=== PATIENT | female | born 1995 | race Caucasian/White ===

== ENCOUNTER 2018-08-06 16:26 | Emergency (ER) | payer SELFPAY ==
[2018-08-06 16:33] VITALS: BMI 22.2
[2018-08-06 16:36] VITALS: RESP 18
[2018-08-06] MEDS ORDERED: Sodium Chloride 0.9% 1,000 ML IV STA (16:54)
--- NOTE | 2018-08-06 16:54 | ED PDOC ---
Arrival/HPI - General Chief Complaint: GI Problem Historian: Patient - History of Present Illness Narrative History of Present Illness (Text): 08/06/18 16:41 22 year old female, no significant pmh, nkda, complaining of runny nose/fatigue/fever/throat pain x 1 day. Pt. stated that she has runny nose, throat pain with couple episodes of vomiting, admits fatigue and bodyache, low grade fever, no recent traveling, no abdominal or pelvic pain, no numbness or tingling, no palpitation, no other medical or psychological complaints. Past Medical History - Provider Review Nursing Documentation Reviewed: Yes - Infectious Disease Hx of Infectious Diseases: None - Reproductive Currently : No - Psychiatric Hx Substance Use: No Family/Social History - Physician Review Nursing Documentation Reviewed: Yes Family/Social History: Unknown Family HX Smoking Status: Never Smoked Hx Alcohol Use: No Hx Substance Use: No Allergies/Home Meds Allergies/Adverse Reactions: Allergies No Known Allergies Allergy (Verified 08/06/18 16:50) Review of Systems - Review of Systems Constitutional: Fatigue, Fevers Eyes: absent: Vision Changes ENT: Sore Throat, Rhinorrhea. absent: Hearing Changes Respiratory: absent: SOB, Cough, Sputum Cardiovascular: absent: Chest Pain Gastrointestinal: Nausea, Vomiting. absent: Abdominal Pain, Diarrhea Genitourinary Female: absent: Dysuria Musculoskeletal: absent: Arthralgias, Back Pain Skin: absent: Rash, Pruritis Neurological: absent: Headache Hemo/Lymphatic: absent: Adenopathy Psychiatric: absent: Anxiety, Depression, Suicidal Ideation Physical Exam Vital Signs Reviewed: Yes Vital Signs Temp Pulse Resp BP Pulse Ox 08/06/18 16:26 99.3 F 108 H 18 107/72 97 Temperature: Afebrile Blood Pressure: Normal Pulse: Tachycardic Respiratory Rate: Normal Appearance: Positive for: Well-Appearing, Non-Toxic, Comfortable Pain Distress: Mild Mental Status: Positive for: Alert and Oriented X 3 - Systems Exam Head: Present: Atraumatic, Normocephalic Pupils: Present: PERRL Extroacular Muscles: Present: EOMI Conjunctiva: Present: Normal Ears: Present: NORMAL TM, Normal Canal. No: Erythema Mouth: Present: Moist Mucous Membranes Pharnyx: No: ERYTHEMA, EXUDATE, TONSILS ENLARGED Nose (External): Present: Atraumatic. No: Abrasion, Contusion, Laceration Nose (Internal): Present: Normal Inspection, No Active Bleeding, Rhinorrhea. No: Septal Hematoma, Epistaxis Neck: Present: Normal Range of Motion, Trachea Midline. No: Meningeal Signs, MIDLINE TENDERNESS, Paraspinal Tenderness, Lymphadenopathy Respiratory/Chest: Present: Clear to Auscultation, Good Air Exchange. No: Respiratory Distress, Accessory Muscle Use, Wheezes, Decreased Breath Sounds, Rales, Retracting, Rhonchi, Tachypneic, Tender to Palpation Cardiovascular: Present: Regular Rate and Rhythm, Normal S1, S2. No: Murmurs Abdomen: No: Tenderness, Distention, Peritoneal Signs, Rebound, Guarding Back: Present: Normal Inspection. No: CVA Tenderness, Midline Tenderness, Paraspinal Tenderness, Pain with Leg Raise, Decubitus Ulcer Upper Extremity: Present: Normal Inspection. No: Cyanosis, Edema Lower Extremity: Present: Normal Inspection, NORMAL PULSES, Normal ROM, Neurovascularly Intact, Capillary Refill < 2 s. No: Edema, Tenderness, Swelling, Deformity Neurological: Present: GCS=15, CN II-XII Intact, Speech Normal, Motor Func Grossly Intact, Gait Normal, Memory Normal Skin: Present: Warm, Dry, Normal Color. No: Rashes Psychiatric: Present: Alert, Oriented x 3, Normal Insight, Normal Concentration Medical Decision Making ED Course and Treatment: 08/06/18 16:58 -labs -chest xray -IVF/zofran/tylenol -Observe and reassess 08/06/18 18:26 -Urine hcg is negative -Chest xray ER wet read: no active disease -Rapid flu is negative, moderate to high suspicious, tamiflu ordered -Labs show no acute significant findings -Urinalysis show +UTI -Pt. feels well, asymptomatic, symptoms resolved after medication. -Discharge home with tamiflu, ceftin, pepcid, zofran, tylenol, stay hydrated, bed rest, follow up with your own pmd within 2 days, repeat the Urinalysis after completion of the antibiotic, return to the ER for any new or worsening signs or symptoms. - RAD Interpretation Radiology Orders: Date of service: 08/06/2018 HISTORY: fever COMPARISON: No prior. TECHNIQUE: Chest PA and lateral FINDINGS: LUNGS: No active pulmonary disease. PLEURA: No significant pleural effusion identified. No pneumothorax apparent. CARDIOVASCULAR: No aortic atherosclerotic calcification present. Normal cardiac size. No pulmonary vascular congestion. OSSEOUS STRUCTURES: No significant abnormalities. VISUALIZED UPPER ABDOMEN: Normal. OTHER FINDINGS: None. IMPRESSION: No active disease. Corrective Therapy Aide: Radiologist - PA / METAL BUMPER / Resident Statement MD/DO has reviewed & agrees with the documentation as recorded. Disposition/Present on Arrival - Present on Arrival Any Indicators Present on Arrival: No History of DVT/PE: No History of Uncontrolled Diabetes: No Urinary Catheter: No History of Decub. Ulcer: No History Surgical Site Infection Following: None - Disposition Have Diagnosis and Disposition been Completed?: Yes Diagnosis: UTI (urinary tract infection), Flu-like symptoms, Nausea & vomiting Disposition: HOME/ ROUTINE Disposition Time: 18:30 Patient Plan: Discharge Condition: IMPROVED Additional Instructions: Discharge home with tamiflu, ceftin, pepcid, zofran, tylenol, stay hydrated, bed rest, follow up with your own pmd within 2 days, repeat the Urinalysis after completion of the antibiotic, return to the ER for any new or worsening signs or symptoms. Prescriptions: Acetaminophen [Tylenol] 2 cap PO QID PRN #30 capsule PRN Reason: Other Cefuroxime Axetil [Cefuroxime] 250 mg PO BID #14 tablet Cefuroxime Axetil [Cefuroxime] 250 mg PO BID #20 tablet Famotidine [Pepcid] 20 mg PO BID #14 tab Ondansetron ODT [Zofran ODT] 4 mg PO TID PRN #9 odt PRN Reason: Other Oseltamivir Phosphate [Tamiflu] 75 mg PO BID #10 capsule Referrals: [facility] [place]] - Follow up with primary Forms: [employer] (Tajik), WORK NOTE
[2018-08-06 17:36] LABS: URINE BILIRUBIN NEGATIVE (NEGATIVE); URINE BLOOD LARGE (NEGATIVE); URINE GLUCOSE (UA) NEGATIVE (NEGATIVE); URINE LEUKOCYTE ESTERASE NEGATIVE Leu/uL (NEGATIVE); URINE PROTEIN 100 mg/dL (<30 mg/dL); URINE UROBILINOGEN 0.2 E.U./dL (<1 E.U./dL)
[2018-08-06 17:42] LABS: URINE APPEARANCE SL CLOUDY (CLEAR); URINE COLOR YELLOW (YELLOW)
[2018-08-06 17:52] LABS: URINE BACTERIA MOD /hpf
[2018-08-06 17:57] LABS: BASO # 0.01 K/mm3 (0.0-2.0); BASO % 0.1 % (0.0-3.0); LYMPH # 0.7 (1.2-3.4); LYMPH % 8.2 % (22.0-35.0); MEAN CELL VOLUME 81.9 fl (80.0-105.0); MEAN CORPUSCULAR HEMOGLOBIN 27.1 pg (25.0-35.0); MEAN CORPUSCULAR HGB CONC 33.1 g/dl (31.0-37.0); MEAN PLATELET VOLUME 10.5 fl (7.0-11.0); MONO # 0.8 (0.1-0.6); MONO % 8.5 % (1.0-6.0); RBC 4.8 10^6/uL (3.5-6.1); RED CELL DISTRIBUTION WIDTH 13.7 % (11.5-14.5)
[2018-08-06] MEDS ORDERED: cefTRIAXone 1 gm 1 GM/100 ML BAG IVPB STA (18:01)
[2018-08-06 18:07] LABS: ALB/GLOB RATIO 1.2 (1.1-1.8); ALBUMIN 4.3 g/dL (3.0-4.8); ALT/SGPT 26 U/L (7-56); AST/SGOT 24 U/L (14-36); BLOOD UREA NITROGEN 10 mg/dL (7-21); CALCIUM 9.4 mg/dL (8.4-10.5); GFR NON-AFRICAN AMERICAN > 60; LIPASE 30 U/L (23-300)
[2018-08-06 18:55] VITALS: BP 112/54; PULSE 88; TEMP 98.8; O2SAT 100
--- NOTE | 2018-08-07 09:31 | RAD ---
Date of service: 08/06/2018 HISTORY: fever COMPARISON: No prior. TECHNIQUE: Chest PA and lateral FINDINGS: LUNGS: No active pulmonary disease. PLEURA: No significant pleural effusion identified. No pneumothorax apparent. CARDIOVASCULAR: No aortic atherosclerotic calcification present. Normal cardiac size. No pulmonary vascular congestion. OSSEOUS STRUCTURES: No significant abnormalities. VISUALIZED UPPER ABDOMEN: Normal. OTHER FINDINGS: None. IMPRESSION: No active disease.
== END 2018-08-06 19:25 | disposition home or self-care (01) ==
LOC: ED 16:26
DX: N39.0 Urinary tract infection, site not specified (principal); R11.2 Nausea with vomiting, unspecified; J11.1 Influenza due to unidentified influenza virus with other respiratory manifestations
CPT/HCPCS: 71046; 80053; 81001; 81025; 83690; 85025; 87086; 87804; 96374; 99284; J0696; J2405; J7030

== ENCOUNTER 2018-08-10 23:13 | Emergency (ER) | payer SELFPAY ==
[2018-08-10 23:13] VITALS: BMI 22.2
[2018-08-11] MEDS ORDERED: Penicillin G Benzathine 1.2 Mill Unit/2 ml Syr IM STA (00:53)
--- NOTE | 2018-08-11 01:13 | ED PDOC ---
Arrival/HPI <rFediDelroy - Last Filed: 08/11/18 01:57> - General Historian: Patient - History of Present Illness Narrative History of Present Illness (Text): 08/11/18 00:58 22-year-old female presents today with sore throat and subjective fevers. Patient states she was seen in the emergency room on 08/06/18. Patient states she was treated with Tamiflu, Ceftin, Zofran and Pepcid. Patient states she is not feeling any better. Patient states her throat is still hurting. Patient states she is having lots of pain with swallowing food. pt c/o intermittent nausea. no cp or sob. no abdominal pain. no other complaints. <Sadie Vu - Last Filed: 08/11/18 02:46> - General Chief Complaint: ENT Problem Time Seen by Provider: 08/11/18 00:32 Past Medical History - Provider Review Nursing Documentation Reviewed: Yes - Travel History Have you recently traveled outside [place] w/in the past 3 mons?: No - Infectious Disease Hx of Infectious Diseases: None - Reproductive Currently : No - Psychiatric Hx Substance Use: No <Sadie Vu - Last Filed: 08/11/18 02:46> Family/Social History - Physician Review Nursing Documentation Reviewed: Yes Family/Social History: Unknown Family HX Smoking Status: Never Smoked Hx Alcohol Use: No Hx Substance Use: No <Sadie uV - Last Filed: 08/11/18 02:46> Allergies/Home Meds <FrediDelroy - Last Filed: 08/11/18 01:57> <Sadie Vu - Last Filed: 08/11/18 02:46> Allergies/Adverse Reactions: Allergies No Known Allergies Allergy (Verified 08/06/18 16:50) Review of Systems - Review of Systems Constitutional: Fatigue, Fevers ENT: Sore Throat, Sinus Congestion Respiratory: absent: SOB, Cough Cardiovascular: absent: Chest Pain, Palpitations Gastrointestinal: Nausea. absent: Abdominal Pain, Constipation, Diarrhea Genitourinary Female: absent: Dysuria Musculoskeletal: absent: Arthralgias, Back Pain, Neck Pain Skin: absent: Rash, Pruritis Neurological: absent: Headache, Dizziness Psychiatric: absent: Anxiety, Depression <Sadie Vu - Last Filed: 08/11/18 02:46> Physical Exam Vital Signs Temp Pulse Resp BP Pulse Ox 08/11/18 01:10 99.1 F 90 18 98/61 L 100 <Delroy Rai - Last Filed: 08/11/18 01:57> Vital Signs Reviewed: Yes Temperature: Afebrile Blood Pressure: Normal Pulse: Regular Respiratory Rate: Normal Appearance: Positive for: Well-Appearing, Non-Toxic, Comfortable Pain Distress: None Mental Status: Positive for: Alert and Oriented X 3 - Systems Exam Head: Present: Atraumatic Pupils: Present: PERRL Extroacular Muscles: Present: EOMI Conjunctiva: Present: Normal Ears: Present: Normal, NORMAL TM Mouth: Present: Moist Mucous Membranes, Normal Lips, Normal Tounge. No: Drooling, Trismus Pharnyx: Present: ERYTHEMA, EXUDATE. No: TONSILS ENLARGED, Peritonsilar Swelling, Uvular Deviation, Muffled/Hoarse Voice, Strider Nose (External): Present: Atraumatic Nose (Internal): Present: Normal Inspection Neck: Present: Normal Range of Motion, Lymphadenopathy, Trachea Midline Respiratory/Chest: Present: Clear to Auscultation, Good Air Exchange. No: Respiratory Distress, Accessory Muscle Use Cardiovascular: Present: Regular Rate and Rhythm, Normal S1, S2. No: Murmurs Abdomen: No: Tenderness <Sadie Vu - Last Filed: 08/11/18 02:46> Medical Decision Making - Medication Orders Current Medication Orders: Discontinued Medications Ketorolac Tromethamine (Toradol) 60 mg IM STAT STA Stop: 08/11/18 00:55 Last Admin: 08/11/18 01:33 Dose: 60 mg MAR Pain Assessment Document 08/11/18 01:33 AD (Rec: 08/11/18 01:34 AD [id number]) Pain Reassessment Is this a pain reassessment? No Presence of Pain Presence of Pain Yes Pain Scale Used Protocol: PSCALES Pain Scale Used Numeric IM Administration Charges Document 08/11/18 01:33 AD (Rec: 08/11/18 01:34 AD [id number]) Injection Site MAR Injection Site Left Gluteus Hubert Charges for Administration # of IM Administrations 1 Penicillin G Benzathine (Bicillin L-A Inj) 1,200,000 units IM STAT STA; Protocol Stop: 08/11/18 00:54 Last Admin: 08/11/18 01:33 Dose: 1,200,000 units IM Administration Charges Document 08/11/18 01:33 AD (Rec: 08/11/18 01:33 AD [id number]) Injection Site MAR Injection Site Right Gluteus Hubert Charges for Administration # of IM Administrations 1 <Delroy Rai - Last Filed: 08/11/18 01:57> ED Course and Treatment: 08/11/18 01:13 Patient is nontoxic well appearing in no distress. Vital signs are stable patient with bilateral pharyngeal erythema and exudates Bicillin LA 1.2 million units given IM Toradol given IM I advised follow up with primary care physician within the next 2 days, advised to increase fluids continue medications as prescribed,follow-up with the ENT specialist within the next 2 days and return if symptoms worsen persist or if new symptoms develop Patient verbalizes understanding of discharge instructions and need for immediate followup. all aspects of this case were discussed the attending of record. IMPRESSION; pharyngitis Motrin every 6 hours as needed for pain/fever reduction increase fluids continue antibiotics as prescribed follow-up with the ENT specialist within the next 2 days Follow up primary care physician within the next 2 days Saltwater gargles, throat lozenges Return if symptoms worsen persist or if new symptoms develop Reassessment Condition: Re-examined, Improved - Medication Orders Current Medication Orders: Ketorolac Tromethamine (Toradol) 60 mg IM STAT STA Stop: 08/11/18 00:55 Discontinued Medications Penicillin G Benzathine (Bicillin L-A Inj) 1,200,000 units IM STAT STA; Protocol Stop: 08/11/18 00:54 <Sadie Vu - Last Filed: 08/11/18 02:46> - PA / ELECTRONICS TEACHER / Resident Statement MD/DO has reviewed & agrees with the documentation as recorded. <Delroy Rai - Last Filed: 08/11/18 01:57> Disposition/Present on Arrival <Delroy Rai - Last Filed: 08/11/18 01:57> - Present on Arrival Any Indicators Present on Arrival: No History of DVT/PE: No History of Uncontrolled Diabetes: No Urinary Catheter: No History of Decub. Ulcer: No History Surgical Site Infection Following: None - Disposition Have Diagnosis and Disposition been Completed?: Yes Disposition Time: 01:15 Patient Plan: Discharge <Sadie Vu - Last Filed: 08/11/18 02:46> - Disposition Diagnosis: Pharyngitis Disposition: HOME/ ROUTINE Condition: GOOD Discharge Instructions (ExitCare): Sore Throat, Adult (DC) Additional Instructions: Motrin every 6 hours as needed for pain/fever reduction increase fluids continue antibiotics as prescribed follow-up with the ENT specialist within the next 2 days Follow up primary care physician within the next 2 days Saltwater gargles, throat lozenges Return if symptoms worsen persist or if new symptoms develop Prescriptions: Ibuprofen [Motrin] 600 mg PO Q6H PRN #20 tab PRN Reason: pain/fever reduction Referrals: John Go DO [Doctor Osteopathy] - Follow up with primary Kisha Zapata MD [Medical Doctor] - Follow up with primary [facility] [Outside] - Follow up with primary Forms: [id number] (Panamanian), SCHOOL NOTE, WORK NOTE
[2018-08-11 01:20] VITALS: O2SAT 100
[2018-08-11 01:22] VITALS: TEMP 99.1
[2018-08-11 02:09] VITALS: BP 101/64; PULSE 89; RESP 16
== END 2018-08-11 02:00 | disposition home or self-care (01) ==
LOC: ED 23:13
DX: J02.9 Acute pharyngitis, unspecified (principal)
CPT/HCPCS: 81025; 96372; 99282; J0561; J1885